=== PATIENT | female | born 1955 | race Caucasian/White ===

== ENCOUNTER 2016-12-03 10:27 | Emergency (ER) | payer OTHER ==
[~2016-12-03] VITALS: Ht 177.8 cm; Wt 84.1 kg
[~2016-12-03 10:27] MED LIST: CYCL-36 PO; IBUP800 PO
[2016-12-03 10:29] VITALS: BP 148/69; PULSE 74; RESP 18; TEMP 98.8; O2SAT 96
[2016-12-03] MEDS ORDERED: ORPHENADRINE INJ 60 MG/2 ML AMP IM ONE (12:00)
[2016-12-03] MEDS ORDERED: KETOROLAC TROMETHAMINE 60 MG/2 ML (IM) VIAL IM ONE (12:00)
--- NOTE | 2016-12-03 12:01 | PD ---
HPI Chief Complaint: Back/ Neck Pain or Injury Time Seen by Provider: 12:01 Travel History International Travel<30 days: No Contact w/Intl Traveler<30days: No Traveled to known affect area: No History of Present Illness HPI 61-year-old female with history of back injury following a work injury, currently in [employer], presents to the emergency department for exacerbation of low back pain. Patient states that she was undergoing her test to return back to work however she states she was unable to complete it. She states when she leaned against the wall her back spasmed and she felt like somebody was standing on her back, the lower back near her buttock. Patient states she contacted Dr. Alvarez who advised she come to the emergency department. Patient reports no focal deficits or injury. No urinary symptoms. No fever or chills. No other symptoms to report. PFSH Past Medical History Arthritis: No Anxiety: Yes Depression: No Heart Rhythm Problems: Yes ("SKIPS A BEAT") Cancer: No Cardiovascular Problems: Yes High Cholesterol: Yes Chest Pain: No Congestive Heart Failure: No Endocrine: No Genitourinary: No Immune Disorder: No Musculoskeletal: Yes Neurologic: No Psychiatric: Yes Reproductive: No Respiratory: No ?: Not Dilation and Curettage (D&C): Yes Past Surgical History Abdominal Surgery: No Body Medical Devices: METAL PLATE T8-T9 Cardiac Surgery: No Ear Surgery: No Endocrine Surgery: No Genitourinary Surgery: No Gynecologic Surgery: Yes (OVARIAN CYSTS) Oral Surgery: No Pacemaker: No Thoracic Surgery: No Other Surgery: Yes (MILK DUCT SURGERY) Social History Alcohol Use: Yes (RARELY) Tobacco Use: Yes (PPD) Substance Use: No Allergies-Medications (Allergen,Severity, Reaction): Coded Allergies: No Known Allergies (Unverified , 12/24/15) Reported Meds & Prescriptions Reported Meds & Active Scripts Active Flexeril (Cyclobenzaprine HCl) 10 Mg Tab 10 Mg PO TID PRN Motrin 800 Mg Tab (Ibuprofen) 800 Mg Tab 800 Mg PO Q8H PRN Review of Systems Except as stated in HPI: all other systems reviewed are Neg Physical Exam Narrative GENERAL: Well-nourished, well-developed female patient, ambulatory, wearing a corset back brace, in no acute distress SKIN: Focused skin assessment warm/dry. HEAD: Normocephalic. EYES: No scleral icterus. No injection or drainage. NECK: Supple, trachea midline. No JVD or lymphadenopathy. CARDIOVASCULAR: Regular rate and rhythm without murmurs, gallops, or rubs. RESPIRATORY: Breath sounds equal bilaterally. No accessory muscle use. GASTROINTESTINAL: Abdomen soft, non-tender, nondistended. MUSCULOSKELETAL: No cyanosis, or edema. The spinal tenderness to palpation. Patient does have tenderness elicited to palpation of the right sacroiliac joint. Sensation intact distal extremities. Cap refill within normal limits. BACK: Nontender without obvious deformity. No CVA tenderness. Data Data Last Documented VS Vital Signs Date Time Temp Pulse Resp B/P Pulse Ox O2 Delivery O2 Flow Rate FiO2 12/03/16 10:29 98.8 74 18 148/69 96 Room Air Orders Ketorolac Inj (Toradol Inj) (12/03/16 12:00) Orphenadrine Inj (Norflex Inj) (12/03/16 12:00) MDM Medical Decision Making Medical Screen Exam Complete: Yes Emergency Medical Condition: Yes Medical Record Reviewed: Yes Differential Diagnosis Lumbar strain versus discogenic pain versus radiculopathy Narrative Course 61-year-old female presents to the emergency from for evaluation of low back pain. Patient has no acute findings on exam. Patient's pain onset was after physical activity with no injury. This is likely muscle strain or spasm. Patient will be provided pain control. She is encouraged to follow-up with primary care provider and return immediately with any acute worsening of symptoms. Diagnosis Primary Impression: Low back pain Qualified Code: M54.41 - Right-sided low back pain with right-sided sciatica, unspecified chronicity Referrals: Primary Care Physician Patient Instructions: Chronic Back Pain (ED), General Instructions Additional Instructions: Continue pain medication as prescribed Avoid activity that exacerbates pain Follow-up with her primary care provider Med/Other Pt SpecificInfo: No Change to Meds Disposition: 01 DISCHARGE HOME Condition: Stable Alissa Kimball BLAIR Dec 03, 2016 12:01
== END 2016-12-03 12:54 | disposition home or self-care (01) ==
LOC: NEPK 10:27
DX: M54.5 Low back pain (principal); F41.9 Anxiety disorder, unspecified; E78.00 Pure hypercholesterolemia, unspecified; F17.200 Nicotine dependence, unspecified, uncomplicated; Z79.899 Other long term (current) drug therapy
CPT/HCPCS: 96372; 99284; J1885; J2360